=== PATIENT | female | born 1985 | race Caucasian/White ===

== ENCOUNTER → 2022-11-22 | Outpatient (CLI) | payer OTHER ==
[~2022-11-22] MED LIST: CITA20 PO; CLON.5 PO; CLON1 PO; CODACE30 PO; HYDACE5 PO; IBUP800 PO; Keflex500 MG PO; Norco 5-325 Ta1 EACH PO; SILSUL1TC TOP; Verotin-Gr Cap1 EACH PO
== END | disposition home or self-care (01) ==
LOC: LAB SHORT 12:52 → LAB 12:52
DX: N39.0 Urinary tract infection, site not specified (principal)
CPT/HCPCS: 87077; 87086; 87147; 87186